=== PATIENT | male | born 1955 | race Caucasian/White ===

== ENCOUNTER 2024-02-20 15:59 | Outpatient (REF) | payer OTHER, SELFPAY ==
--- NOTE | 2024-02-21 15:41 | MHC.AU.MED ---
Medical Clearance for Hearing Instrumentation Date: 02/21/24 Patient Name: Danny Fry Date of : 1955 Primary Care Provider: Referring Provider: Jad Melton III, MD We have seen your patient on 02/21/24 and have determined that they are a candidate for amplification (See accompanying report). Specifically, they would benefit from: Hearing aid use in both ears There is a statute that addresses Medical Evaluation Requirements prior to fitting a patient with a hearing aid. According to [place] statute 265 CMR:6.03(1), (a) General. Except as provided in 265 CMR 6.03(1)(b), a wire bender hand shall not sell a hearing aid unless the prospective user has presented to the wire bender hand a written statement signed by a licensed physician that states that the patient's hearing loss has been medically evaluated and the patient may be considered a candidate for a hearing aid. The medical evaluation must have taken place within the preceding six months. Please note: Due to the [place] Statute referenced above, we cannot accept a signature other than that of a licensed physician. MEDICAL PHYSICS TEACHER and PA signatures cannot be accepted. I am in agreement with the above recommendation. There is no medical contraindication for hearing instrumentation. Physician Signature Date Physician Name (Printed)
== END 2024-02-20 16:00 | disposition home or self-care (01) ==
LOC: HO.SH 15:59
PROVIDERS: Visit Provider Internal Medicine
DX: Z01.118 Encounter for examination of ears and hearing with other abnormal findings (principal); H90.A32 Mixed conductive and sensorineural hearing loss, unilateral, left ear with restricted hearing on the contralateral side
CPT/HCPCS: 92557; 92567

== ENCOUNTER 2024-02-21 12:02 | Outpatient (REF) | payer SELFPAY | END 2024-02-21 12:03 | disposition home or self-care (01) | LOC: HO.HAP 12:02 | PROVIDERS: Visit Provider Internal Medicine Endocrinology, Diabetes & Metabolism | DX: Z46.1 Encounter for fitting and adjustment of hearing aid (principal); H90.A32 Mixed conductive and sensorineural hearing loss, unilateral, left ear with restricted hearing on the contralateral side; H90.A21 Sensorineural hearing loss, unilateral, right ear, with restricted hearing on the contralateral side | CPT/HCPCS: 92590; 92591; 92700; V5260; V5261; V5299 ==

== ENCOUNTER 2024-03-18 15:35 | Outpatient (REF) | payer SELFPAY | END 2024-03-18 15:36 | disposition home or self-care (01) | LOC: HO.HAP 15:35 | PROVIDERS: Visit Provider Internal Medicine Endocrinology, Diabetes & Metabolism | DX: Z13.89 Encounter for screening for other disorder (principal) ==